=== PATIENT | male | born 1990 | race Hispanic/Latino ===

== ENCOUNTER 2021-09-25 11:37 | Emergency (ER) | payer SELFPAY ==
[2021-09-25 11:50] VITALS: BP 136/91; PULSE 70; RESP 14; TEMP 37; O2SAT 100
--- NOTE | 2021-09-25 11:54 | ED.MALEGU ---
HPI - Male Genitourinary General Chief complaint: Urogenital-Male Stated complaint: genital infection Time Seen by Provider: 09/25/21 11:55 Source: patient and RN notes reviewed History of Present Illness HPI Narrative: Patient is a 31-year-old male who presents the urgent care with complaints of a reddened area to the left testicle and left side of the penis. Patient states it has been approximately 1 year since he has had any sexual intercourse. Patient denies of any penile drainage or urinary frequency/urgency/dysuria. Patient is not concerned of STDs. No other acute complaints. No acute distress noted. Patient read the plan of care. Some parts of this dictation were generated by voice recognition software and may contain typographical and/or grammatical inaccuracies. Related Data Home Medications Medication Instructions Recorded Confirmed No Home Medications 09/25/21 09/25/21 Allergies Allergy/AdvReac Type Severity Reaction Status Date / Time No Known Allergies Allergy Verified 09/25/21 12:01 Review of Systems Review of Systems: CONSTITUTIONAL: Denies fever, chills, or sweats. EYES: Denies visual changes, redness, or discharge. ENT: Denies rhinorrhea, congestion, sore throat, or otalgia. CARDIOVASCULAR: Denies chest pain, palpitations, or edema. RESPIRATORY: Denies cough or dyspnea. GASTROINTESTINAL: Denies abdominal pain, nausea, vomiting, or diarrhea. GENITOURINARY: Denies dysuria or hematuria. SKIN: Denies rash or itching. MUSCULOSKELETAL: Denies back pain, joint pain, or myalgia. NEUROLOGIC: Denies headache, numbness, or weakness. All other systems reviewed are negative, except as documented in HPI. PMFSH Comments At the time of my signature, I reviewed and agree with the nursing past medical, surgical, social, and family history. There is no relevant family history pertinent to the patient complaint. Exam Narrative: GENERAL: This is a well-nourished, well-developed patient, in no apparent distress. HEAD: normocephalic, atraumatic. EYES: PERRL. Sclera clear/white. Vision is grossly intact. EARS: External ears normal NOSE: External nose normal with no obvious nasal discharge, nares without redness, no rhinorrhea. THROAT: Mucous membranes moist NECK: Neck supple CARDIOVASCULAR: Regular rate and rhythm without murmurs, gallops, or rubs. RESPIRATORY: Clear to auscultation. Breath sounds equal bilaterally. No wheezes, rales, or rhonchi. SKIN: Mild erythemic excoriation to right and left of the proximal upper penis. Suspicious closed lesion to the left testicle NEURO: awake, alert, and oriented to person, place and time. There were no obvious focal neurologic abnormalities. EXTREMITIES: No clubbing, cyanosis, or edema. Course Course Level of Care: Express Care Visit Vital Signs Vital signs: Vital Signs Temperature 98.6 F 09/25/21 11:50 Pulse Rate 70 09/25/21 11:50 Respiratory Rate 14 09/25/21 11:50 Blood Pressure 136/91 H 09/25/21 11:50 Pulse Oximetry 100 09/25/21 11:50 Temperature 98.6 F 09/25/21 11:50 Pulse Rate 70 09/25/21 11:50 Respiratory Rate 14 09/25/21 11:50 Blood Pressure 136/91 H 09/25/21 11:50 Pulse Oximetry 100 09/25/21 11:50 Reviewed-patient is informed that they may have pre-hypertension or hypertension based on a blood pressure reading in the department. I recommend the patient call the primary care provider listed on their discharge instructions or a physician of their choice this week to arrange follow-up for further evaluation of possible pre-hypertension or hypertension. MDM - Male Genitourinary MDM Narrative Medical decision making narrative: Advised the patient to use Vaseline to the areas. It appears that you may have some excoriation to the penis however it would be vasquez to rule out herpes. Advised the patient to go to the [facility] for testing of herpes. The testing requires a blood draw which our facility is unable t
== END 2021-09-25 12:42 | disposition home or self-care (01) ==
PROVIDERS: Emergency Provider Nurse Practitioner Family
DX: S30.812A Abrasion of penis, initial encounter (principal); X58.XXXA Exposure to other specified factors, initial encounter
CPT/HCPCS: 99211; G0463